=== PATIENT | male | born 1960 | race Caucasian/White ===

== ENCOUNTER 2018-10-08 20:06 | Inpatient (IN) | payer SELFPAY ==
[2018-10-08] VITALS (50 sets, daily range): BP systolic 109–134; BP diastolic 62–71; PULSE 93–96; TEMP 98.2–98.8; O2SAT 82–100
[~2018-10-08] VITALS: Ht 177.8 cm; Wt 85.4 kg
[~2018-10-08 20:06] MED LIST: ALDACTONE 100M100 MG PO; DAZIDOX10 MG PO; FOLIC ACID 11 MG/TA1 PO; LASIX 20MG TABL20 MG PO; MULTIPLE VITAMI1 CAP PO; NEXIUM 40MG40 MG PO; PRILOTC PO; TOPROL XL 25MG25 MG PO; VITAMIN B1250 MG PO
[2018-10-08 21:55] LABS: BASO % 0.1 % (0.0-2.0); EOS % 0.1 % (0-4.0); GRAN # 12.4 (1.4-6.5); GRAN % 82.9 % (42.2-75.2); LYMPH # 1.6 (1.2-3.4); LYMPH % 10.6 % (20.0-51.0); MEAN CELL VOLUME 84 fl (80.0-100.0); MEAN CORPUSCULAR HGB CONC 31 g/dl (33.0-37.0); MONO # 0.8 (0.1-0.6); MONO % 5.4 % (1.7-9.3); PLATELET COUNT 234 K/mm3 (130-400); RED BLOOD COUNT 1.24 M/mm3 (4.20-5.60); REDCELL DISTRIBUTION WIDTH-CV 18.7 % (11.5-14.5)
[2018-10-08 21:58] LABS: ALBUMIN 2.4 gm/dL (3.5-5.0); CALCIUM 7.2 mg/dL (8.4-10.2); CREATININE, serum 0.86 (0.66-1.25); HEMATOCRIT 10.4 % (42.0-52.0); HEMOGLOBIN 3.2 g/dl (13.5-18.0); MEAN CORPUSCULAR HEMOGLOBIN 26 pg (27.0-31.0); POTASSIUM 4.5 mmol/L (3.4-5.0); TOTAL PROTEIN 4.8 gm/dL (6.4-8.2)
[2018-10-08 22:08] LABS: INR 1.5 (0.8-3.0); PROTHROMBIN TIME 16.6 SECONDS (9.7-12.8)
[2018-10-08 22:10] LABS: PARTIAL THROMBOPLASTIN TIME 24.4 SECONDS (26.0-37.0)
[2018-10-08 22:29] LABS: BAND 1 % (0-10); LYMPHOCYTE 13 % (20.0-51.0); NEUTROPHILS 81 % (42.0-75.2); PLATELET ESTIMATE NORMAL (NORMAL)
[2018-10-08 22:32] LABS: POLYCHROMASIA 1+
[2018-10-08 22:33] LABS: ANISOCYTOSIS 1+; HYPOCHROMIA 2+
[2018-10-08 23:20] LABS: PH 5 (5-8); SQUAMOUS EPITHELIAL 0-2 /hpf; URINE APPEARANCE Clear; URINE BACTERIA None Seen /hpf; URINE BILIRUBIN Negative (NEGATIVE); URINE BLOOD Negative (NEGATIVE); URINE COLOR Yellow; URINE GLUCOSE Negative (NEGATIVE); URINE KETONE Negative (NEGATIVE); URINE LEUKOCYTE ESTERASE Negative (NEGATIVE); URINE NITRATE Negative (NEGATIVE); URINE PROTEIN(semi-quant) Negative (NEGATIVE); URINE RBC 0-2 /hpf
[2018-10-08 23:29] LABS: COLLECTION METHOD CLEAN CATCH
[2018-10-08 23:35] LABS: OSMOLALITY-URINE random 417 Osm/kg (50-1200)
[2018-10-09] VITALS (163 sets, daily range): BP systolic 85–140; BP diastolic 42–89; PULSE 66–100; TEMP 97.3–98.8; O2SAT 85–100
[2018-10-09 03:00] LABS: CALCIUM 7.1 mg/dL (8.4-10.2); CREATININE, serum 0.95 (0.66-1.25); POTASSIUM 4.7 mmol/L (3.4-5.0)
--- NOTE | 2018-10-09 04:00 | NUR ---
Assessment complete. No changes from previous exam. Patient resting in bed at this time with no complaints of pain or SOB. Patient's BP started decreasing around 0320am. Repositioned cuff, awakened patient and recycled. Patient's BP remained low and got as low as systolic in the 70's, EICU was called. Orders received for bolus. See physician notification for details. Patient states that he feels fine. Will continue to monitor pressures. Call light within reach. No further needs.
[2018-10-09 05:06] LABS: HEMOGLOBIN 5.7 g/dl (13.5-18.0)
[2018-10-09 05:07] LABS: HEMATOCRIT 17.8 % (42.0-52.0)
--- NOTE | 2018-10-09 06:13 | NUR ---
After bolus, patient's BP began to drop again into the 80's systolic. Called EICU and spoke with Dr. Sepulveda. See physician notification. New orders for another 500ml bolus of NS, and 1unit PRBC and 1 unit FFP.
--- NOTE | 2018-10-09 07:15 | NUR ---
Report received from Eve CERVANTES and care resumed.
--- NOTE | 2018-10-09 07:27 | NUR ---
Bedside report given to HELEN Fuller. All lines and medications reviewed. Transfer of care at this time.
--- NOTE | 2018-10-09 08:32 | NUR ---
Called Dr Lema regarding IV access. Order for PICC line received. AIVS notified. Assessment complete. Pt denies any pain at this time. FFP started. Anesthesia notifed of consult regarding EGD. Will continue to follow.
[2018-10-09 10:28] LABS: HEMATOCRIT 19.3 % (42.0-52.0); HEMOGLOBIN 6.2 g/dl (13.5-18.0)
--- NOTE | 2018-10-09 12:11 | NUR ---
Pt remains resting at this time, denies any pain or concerns. Waiting on 1 more unit PRBC to be cross matched for tranfusing. Pt to have EGD at 1330. No concerns at this time, will continue to follow.
--- NOTE | 2018-10-09 12:44 | NUR ---
Dr Lema in to see pt at this time.
--- NOTE | 2018-10-09 12:54 | NUR ---
Pt to [facility] at this time for EGD. Blood sent.
--- NOTE | 2018-10-09 14:15 | NUR ---
Called to endo suite for CAT call. Anesthesia, endo staff, and Dr Chavez at bedside. Pt had been intubated and was actively bleeding from varices per GI doctor. Called blood blank for stat units of PRBC's. Dr Chavez unable to do any bands and felt best for pt to be sent back to unit and transfered out for further interventions. Pt returned to ICU at 1405 and placed on monitor and vent. PRBC's infusing. Will continue to follow.
[2018-10-09 14:20] LABS: BASO # 0.1 (0.0-0.2); BASO % 0.4 % (0.0-2.0); EOS # 0.1 (0.0-0.7); EOS % 0.9 % (0-4.0); GRAN # 9.8 (1.4-6.5); GRAN % 69.6 % (42.2-75.2); HEMATOCRIT 26.7 % (42.0-52.0); HEMOGLOBIN 8.4 g/dl (13.5-18.0); LYMPH # 2.7 (1.2-3.4); LYMPH % 19.3 % (20.0-51.0); MEAN CELL VOLUME 91 fl (80.0-100.0); MEAN CORPUSCULAR HEMOGLOBIN 29 pg (27.0-31.0); MEAN CORPUSCULAR HGB CONC 32 g/dl (33.0-37.0); MEAN PLATELET VOLUME 10.6 fl (7.4-10.4); MONO # 1.2 (0.1-0.6); MONO % 8.5 % (1.7-9.3); PLATELET COUNT 183 K/mm3 (130-400); RED BLOOD COUNT 2.94 M/mm3 (4.20-5.60); REDCELL DISTRIBUTION WIDTH-CV 16.3 % (11.5-14.5)
[2018-10-09 14:22] LABS: HEMATOCRIT 25.8 % (42.0-52.0); HEMOGLOBIN 8.4 g/dl (13.5-18.0)
[2018-10-09 14:25] LABS: INR 1.4 (0.8-3.0); PROTHROMBIN TIME 15.5 SECONDS (9.7-12.8)
[2018-10-09 14:30] LABS: ALBUMIN 1.9 gm/dL (3.5-5.0); BILIRUBIN,TOTAL 1.7 mg/dL (0.0-1.0); CALCIUM 6.2 mg/dL (8.4-10.2); CREATININE, serum 1.05 (0.66-1.25); POTASSIUM 4.3 mmol/L (3.4-5.0); TOTAL PROTEIN 4.1 gm/dL (6.4-8.2)
--- NOTE | 2018-10-09 14:38 | NUR ---
ALBERT and ALBERT student responded to CAT call. The patient became unstable while having an endoscopy. ALBERT attempted several times to contact his next of kin and emergency contact, Antione Chavez (brother) and godmother (Marcia Boucher:[phone]. ALBERT left voicemails. ALBERT was able to obtain his brother's wifes' phone number (Annabel Chavez: [phone]). ALBERT attempted to contact her. ALBERT left a voicemail. The patient is to be life flighted to [facility] today, 10/09. The patient's brother contacted ALBERT back. ALBERT informed the patient's brother of the plan. The patient's brother was also able speak to the hospitalist, Dr. Lema, to get an update.
--- NOTE | 2018-10-09 15:30 | NUR ---
Pt has been accepted to [facility]. Waiting on transportation at this time. Pt did start to wake up post EGD. Propofol and fentanyl ordered per Dr Ramírez. manager environmental services currently working on contacting next of kin. IV fluids and octreotide also resumed as ordered. Will continue to follow.
--- NOTE | 2018-10-09 15:30 | NUR ---
Initial visit; Accounting Manager called to Endoscopy Kt [facility]. Patient being ministered to medical persons, Accounting Manager offered silent prayer for patient that he be made well. Patient prepared for transport.
--- NOTE | 2018-10-09 16:24 | NUR ---
Flight team here and report given. Pt tranfered to their monitor and IV pumps. Pt moved to cot. 2 units PRBC's sent with flight crew units [phone] and [phone]. Team helped out to [facility] for transfer to [facility] at 1615.
[2018-10-09 16:35] LABS: ARTERIAL BLD GAS O2 SATURATION 98.7 % (92-100); ARTERIAL BLD GAS TCO2 CT 18.8; ARTERIAL BLOOD GAS BASE EXCESS -7.9 (-2-2); ARTERIAL BLOOD GAS HCO3 17.7 meq/L (22-26); ARTERIAL BLOOD GAS PCO2 36.3 mmHg (35-45); ARTERIAL BLOOD GAS PO2 264.6 mmHg (80-100); ARTERIAL BLOOD GAS pH 7.31 (7.35-7.45)
--- NOTE | 2018-10-09 16:35 | NUR ---
Report called to Idalia CERVANTES and med.
--- NOTE | 2018-10-09 18:34 | NUR ---
PT WAS A CAT CALL IN [facility]. INTUBATED BY ANESTHESIA. #8.0 SECURED 24CM @ LIP. CXR OBTAINED ONCE PT ARRIVED TO ICU FOR GOOD PLACEMENT. SUCTIONED OUT BLOOD AND CLOTS FROM OETT. INITIAL SETTINGS: AC 500,18,100%,+5, AFTER ABG OBTAINED RR DECREASED TO 16 AND FIO2 DECREASED TO 60%. ALARMS SET AND FUNCTIONING. PT THEN TRANSPORTED TO BY FLIGHT TEAM.
== END 2018-10-09 16:20 | disposition short-term general hospital (02) | DRG 432 ==
LOC: ICU 20:06
PROVIDERS: Internal Medicine Gastroenterology; Nurse Practitioner Family; Physician Assistant; ADMIT Internal Medicine
PROC: 06L38ZZ Occlusion of Esophageal Vein, Via Natural or Artificial Opening Endoscopic (ICD-10-PCS; 2018-10-09)
PROC: 0W3P8ZZ Control Bleeding in Gastrointestinal Tract, Via Natural or Artificial Opening Endoscopic (ICD-10-PCS; 2018-10-09)
PROC: 0BH17EZ Insertion of Endotracheal Airway into Trachea, Via Natural or Artificial Opening (ICD-10-PCS; 2018-10-09)
PROC: 5A1935Z Respiratory Ventilation, Less than 24 Consecutive Hours (ICD-10-PCS; principal; 2018-10-09 13:30)
DX: K70.31 Alcoholic cirrhosis of liver with ascites (principal); I85.11 Secondary esophageal varices with bleeding; D62 Acute posthemorrhagic anemia; E87.1 Hypo-osmolality and hyponatremia; E87.2 Acidosis; N17.9 Acute kidney failure, unspecified; B18.2 Chronic viral hepatitis C; F17.210 Nicotine dependence, cigarettes, uncomplicated; E86.0 Dehydration; F10.20 Alcohol dependence, uncomplicated; I95.9 Hypotension, unspecified
CPT/HCPCS: 99223-AI; 99239; A4314; C1751; C9113; J2354; J2704; J3010; J7030; J7040; P9016